=== PATIENT | male | born 1980 | race Caucasian/White ===

== ENCOUNTER 2016-05-29 21:55 | Emergency (ER) | payer MEDICAID, OTHER ==
[~2016-05-29] VITALS: Ht 175.3 cm; Wt 78.0 kg
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
[2016-05-29 23:07] LABS: AUTOMATED NEUTROPHIL # 11.2 TH/MM3 (1.8-7.7); BASOPHIL # 0.2 TH/MM3 (0-0.2); BASOPHIL % 1.2 % (0.0-2.0); EOSINOPHIL # 0.1 TH/MM3 (0-0.4); HEMATOCRIT 45.1 % (39.0-51.0); HEMO FLAGS DIFF FINAL; LYMPH % 15.4 % (9.0-44.0); LYMPHOCYTE # 2.2 TH/MM3 (1.0-4.8); MEAN CELL VOLUME 88.9 FL (80.0-100.0); MEAN CORPUSCULAR HEMOGLOBIN 30.6 PG (27.0-34.0); MEAN CORPUSCULAR HGB CONC 34.4 % (32.0-36.0); MONO % 5.3 % (0.0-8.0); NEUT % 77.1 % (16.0-70.0); PLATELET COUNT 235 TH/MM3 (150-450); RED BLOOD COUNT 5.08 MIL/MM3 (4.50-5.90); RED CELL DISTRIBUTION WIDTH 13.4 % (11.6-17.2); WHITE BLOOD COUNT 14.5 TH/MM3 (4.0-11.0)
[2016-05-29 23:19] LABS: ANION GAP 9 MEQ/L (5-15); BICARBONATE 24.3 MEQ/L (21.0-32.0); BLOOD UREA NITROGEN 13 MG/DL (7-18); CHLORIDE 107 MEQ/L (98-107); GLOMERULAR FILTRATION RATE 89 ML/MIN (>89); POTASSIUM 3.7 MEQ/L (3.5-5.1); SODIUM (NA) 140 MEQ/L (136-145)
[2016-05-30 00:31] VITALS: BP 138/88; PULSE 83; RESP 20; TEMP 97.7; O2SAT 100
[2016-05-30 00:46] VITALS: BP 138/88; PULSE 83; RESP 20; TEMP 97.7; O2SAT 100
[2016-05-30 04:45] VITALS: BP 130/78; PULSE 78; RESP 26; O2SAT 100
[2016-05-30 04:57] VITALS: BP 147/75; PULSE 84; RESP 18; TEMP 97.6; O2SAT 95
[2016-05-30 11:16] LABS: AMPHETAMINE, URINE NEG (NEG); BARBITURATES, URINE NEG (NEG); COCAINE, URINE POS (NEG)
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
[2016-05-30 12:08] VITALS: BP 147/75; PULSE 84; RESP 18; O2SAT 95
[2016-05-30] MEDS ORDERED: HALOPERIDOL DECANOATE 50 MG/ML VIAL IM ONE (21:15)
[2016-05-30] MEDS ORDERED: BENZTROPINE MESYLATE 1 MG TAB PO ONE (21:15)
== END 2016-05-30 16:02 | disposition home or self-care (01) ==
LOC: NEPA 21:55 → NEPJ 05-30 16:02
DX: F14.950 Cocaine use, unspecified with cocaine-induced psychotic disorder with delusions (principal)
CPT/HCPCS: 80048; 80307; 80320; 85025; 99283

== ENCOUNTER 2016-06-14 21:48 | Inpatient (IN) | payer MEDICAID, OTHER ==
[~2016-06-14] VITALS: Ht 175.3 cm; Wt 64.6 kg
[2016-06-14 21:50] VITALS: BP 145/85; PULSE 86; RESP 16; TEMP 97.6; O2SAT 100
[2016-06-14 22:54] VITALS: BP 139/90; PULSE 85; RESP 17; O2SAT 99
--- NOTE | 2016-06-14 23:01 | PD ---
HPI Chief Complaint: Psychiatric Symptoms Time Seen by Provider: 22:59 Travel History International Travel<30 days: No Contact w/Intl Traveler<30days: No Traveled to known affect area: No History of Present Illness HPI Patient comes emergency Department requesting psychiatric evaluation. He states he feels the people are following him and he is afraid if he does not get help he may hurt them. Patient states he is not wanting to hurt them and that is why he came in for help. Denies any homicidal or suicidal ideations. Denies any medical concerns this time. Denies any chest pain, shortness of breath, abdominal pain, fevers, or headaches. PFSH Past Medical History Anxiety: Yes Depression: Yes Diminished Hearing: No Social History Alcohol Use: Yes Tobacco Use: Yes Substance Use: Yes Allergies-Medications (Allergen,Severity, Reaction): Coded Allergies: No Known Allergies (Unverified , 06/14/16) Reported Meds & Prescriptions Reported Meds & Active Scripts Active No Active Prescriptions or Reported Medications Review of Systems Except as stated in HPI: all other systems reviewed are Neg Physical Exam Narrative GENERAL: Well-developed, well nourished, in no acute distress, and non-ill appearing. SKIN: Warm and dry. HEAD: Atraumatic. Normocephalic. EYES: Pupils equal and round. EOMI. No scleral icterus. No injection or drainage. ENT: No nasal bleeding or discharge. Mucous membranes pink and moist. NECK: Trachea midline. Supple. No nuclear rigidity. CARDIOVASCULAR: Regular rate and rhythm. No murmur appreciated. RESPIRATORY: No accessory muscle use. No respiratory distress. Clear to auscultation. Breath sounds equal bilaterally. MUSCULOSKELETAL: No obvious deformities. No clubbing. No cyanosis. No edema. Full range of motion. NEUROLOGICAL: Awake and alert. No obvious cranial nerve deficits. Motor grossly within normal limits. Normal speech. PSYCHIATRIC: Appropriate mood and affect. Data Data Last Documented VS Vital Signs Date Time Temp Pulse Resp B/P Pulse Ox O2 Delivery O2 Flow Rate FiO2 06/14/16 22:54 85 17 139/90 99 Room Air 06/14/16 21:50 97.6 Orders Complete Blood Count With Diff (06/14/16 22:40) Comprehensive Metabolic Panel (06/14/16 22:40) Psych Screen (06/14/16 22:40) Drug Screen, Random Urine (06/14/16 22:40) Alcohol (Ethanol) (06/14/16 22:40) Salicylates (Aspirin) (06/14/16 22:40) Tylenol (Acetaminophen) (06/14/16 22:40) Labs Laboratory Tests Test 06/14/16 06/14/16 22:35 22:45 Urine Opiates Screen NEG Urine Barbiturates Screen NEG Urine Amphetamines Screen NEG Urine Benzodiazepines Screen NEG Urine Cocaine Screen POS Urine Cannabinoids Screen NEG White Blood Count 11.1 TH/MM3 Red Blood Count 4.80 MIL/MM3 Hemoglobin 14.9 GM/DL Hematocrit 42.7 % Mean Corpuscular Volume 88.9 FL Mean Corpuscular Hemoglobin 31.0 PG Mean Corpuscular Hemoglobin 34.9 % Concent Red Cell Distribution Width 13.4 % Platelet Count 234 TH/MM3 Mean Platelet Volume 8.4 FL Neutrophils (%) (Auto) 74.2 % Lymphocytes (%) (Auto) 18.8 % Monocytes (%) (Auto) 5.2 % Eosinophils (%) (Auto) 1.2 % Basophils (%) (Auto) 0.6 % Neutrophils # (Auto) 8.2 TH/MM3 Lymphocytes # (Auto) 2.1 TH/MM3 Monocytes # (Auto) 0.6 TH/MM3 Eosinophils # (Auto) 0.1 TH/MM3 Basophils # (Auto) 0.1 TH/MM3 CBC Comment DIFF FINAL Differential Comment Sodium Level 140 MEQ/L Potassium Level 4.0 MEQ/L Chloride Level 104 MEQ/L Carbon Dioxide Level 27.5 MEQ/L Anion Gap 9 MEQ/L Blood Urea Nitrogen 12 MG/DL Creatinine 0.93 MG/DL Estimat Glomerular Filtration 92 ML/MIN Rate Random Glucose 90 MG/DL Calcium Level 8.7 MG/DL Total Bilirubin 0.2 MG/DL Aspartate Amino Transf 12 U/L (AST/SGOT) Alanine Aminotransferase 16 U/L (ALT/SGPT) Alkaline Phosphatase 110 U/L Total Protein 7.0 GM/DL Albumin 3.9 GM/DL Salicylates Level 2.4 MG/DL Acetaminophen Level LESS THAN 2.0 MCG/ML Ethyl Alcohol Level LESS THAN 3 MG/DL MDM Medical Decision Making Medical Screen Exam Complete: Yes Emergency Medical Condition: Yes Differential Diagnosis Alcohol intoxication , substance-induced psychotic disorder, delusional, paranoid, schizophrenia, other Narrative Course Patient was seen and examined. Labs were obtained and reviewed. Patient medically cleared for further treatment and evaluation by psych. Final disposition per psych. Diagnosis Primary Impression: Substance abuse Scripts No Active Prescriptions or Reported Meds Condition: Kwasi Wood Jun 14, 2016 23:01
[2016-06-14 23:11] LABS: AUTOMATED NEUTROPHIL # 8.2 TH/MM3 (1.8-7.7); BASOPHIL # 0.1 TH/MM3 (0-0.2); BASOPHIL % 0.6 % (0.0-2.0); EOSINOPHIL # 0.1 TH/MM3 (0-0.4); EOSINOPHIL % 1.2 % (0.0-4.0); HEMATOCRIT 42.7 % (39.0-51.0); HEMO FLAGS DIFF FINAL; LYMPH % 18.8 % (9.0-44.0); LYMPHOCYTE # 2.1 TH/MM3 (1.0-4.8); MEAN CELL VOLUME 88.9 FL (80.0-100.0); MEAN CORPUSCULAR HGB CONC 34.9 % (32.0-36.0); MONO % 5.2 % (0.0-8.0); NEUT % 74.2 % (16.0-70.0); PLATELET COUNT 234 TH/MM3 (150-450); RED CELL DISTRIBUTION WIDTH 13.4 % (11.6-17.2); WHITE BLOOD COUNT 11.1 TH/MM3 (4.0-11.0)
[2016-06-14 23:15] LABS: AMPHETAMINE, URINE NEG (NEG); BARBITURATES, URINE NEG (NEG); COCAINE, URINE POS (NEG)
[2016-06-14 23:24] LABS: ANION GAP 9 MEQ/L (5-15)
[2016-06-14 23:27] LABS: ALKALINE PHOSPHATASE 110 U/L (45-117); ALT (GPT) 16 U/L (12-78); AST (GOT) 12 U/L (15-37); BICARBONATE 27.5 MEQ/L (21.0-32.0); BLOOD UREA NITROGEN 12 MG/DL (7-18); CHLORIDE 104 MEQ/L (98-107); GLOMERULAR FILTRATION RATE 92 ML/MIN (>89); SODIUM (NA) 140 MEQ/L (136-145); TOTAL BILIRUBIN ADULT 0.2 MG/DL (0.2-1.0)
[2016-06-14 23:40] LABS: ACETAMINOPHEN LESS THAN 2.0 MCG/ML (10.0-30.0)
[2016-06-15 02:27] VITALS: BP 137/67; PULSE 81; RESP 19; O2SAT 99
[2016-06-15 06:25] VITALS: BP 127/70; PULSE 72; RESP 16; O2SAT 100
[2016-06-15] MEDS ORDERED: OLANZapine 5 MG TAB PO ONE (13:00)
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
[2016-06-15] MEDS: NICOTINE 21 MG/24 HR PATCH T-DERMAL SCH ×2 (17:00→18:41)
[2016-06-15] MEDS ORDERED: MAGNESIUM HYDROXIDE SUSP 30 ML CUP PO PRN (17:00)
[2016-06-15] MEDS ORDERED: ACETAMINOPHEN 325 MG TAB PO PRN (17:00)
[2016-06-15 18:10] VITALS: BP 132/81; PULSE 66; RESP 20; TEMP 97.9; O2SAT 100
[2016-06-15] MEDS: REMOVE OLD PATCH T-DERMAL SCH (18:41)
[2016-06-16 05:36] VITALS: BP 122/81; PULSE 66; RESP 18; TEMP 97.9; O2SAT 100
[2016-06-16] MEDS: NICOTINE 21 MG/24 HR PATCH T-DERMAL SCH (08:01)
[2016-06-16 08:47] LABS: ANION GAP 9 MEQ/L (5-15); BICARBONATE 28.4 MEQ/L (21.0-32.0); BLOOD UREA NITROGEN 16 MG/DL (7-18); CHLORIDE 104 MEQ/L (98-107); GLOMERULAR FILTRATION RATE 81 ML/MIN (>89); HDL CHOLESTEROL 51.7 MG/DL (40.0-60.0); LDL CHOLESTEROL 95 MG/DL (0-99); POTASSIUM 4.1 MEQ/L (3.5-5.1); SODIUM (NA) 141 MEQ/L (136-145)
--- NOTE | 2016-06-16 11:21 | HHI.HP ---
Provisional Diagnosis Admission Date Jun 15, 2016 at 17:01 [place] I. 1. 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 Cocaine abuse, rule-out dependence [place] II. Deferred [place] V. GAF is unclear at present Certification of Person's Competence To Provide Express and Informed Consent I have personally examined Matheus Cruz , a person being served at [facility] on, Jun 16, 2016 11:21. Express and informed consent means consent voluntarily given in writing, by a competent person, after sufficient explanation and disclosure of the subject matter involved to enable the person to make a knowing and willful decision without any element of force, fraud, deceit, duress, or other form of constraint or coercion. This person is 18 years of age or older, is not now known to be incompetent to consent to treatment with a guardian advocate, and does not have a health care surrogate or proxy currently making medical treatment decisions. I have found this person to be one of the following: [] Competent to provide express and informed consent, as defined above, for voluntary admission to this facility and is competent to provide express and informed consent for treatment. He/she has the consistent capacity to make well reasoned, willful, and knowing decisions concerning his or her medical or mental health treatment. The person fully and consistently understands the purpose of the admission for examination/placement and is fully capable of personally exercising all rights assured [place] [] Incompetent to provide express and informed consent to voluntary admission, and this is incompetent to provide express and informed consent to treatment. The person must be transferred to involuntary status and a petition for a guardian advocate filed with the Circuit Court. [x] Refusing to provide express and informed consent to voluntary admission but is competent to provide express and informed consent for treatment. The person must be discharged or transferred to involuntary status. Form shall be completed within 24 hours of a person's arrival at the receiving facility and filed in the clinical record of each person: 1. Admitted on a voluntary basis 2. Permitted to provide express and informed consent to his/her own treatment 3. Allowed to transfer from involuntary to voluntary status 4. Prior to permitting a person to consent to his or her own treatment after having been previously found incompetent to consent to treatment. History of Present Illness Capacity: Has Capacity HPI Mr. Cruz is a 35-year-old male with no reported previous psychiatric history who presented initially on a voluntary basis to the emergency department with paranoia. Patient was evaluated by the psychiatric nurse practitioner who placed the patient under the Aburto act. Reviewing the electronic medical record, I note that the patient presented under a Aburto act a little over 2 weeks ago for similar complaints. Patient's urine toxicology was positive for cocaine on both occasions. Patient seen and examined with counselor and nurse. Chart reviewed. Case discussed with nursing staff on the inpatient psychiatric unit. Per nursing staff, patient has been no behavioral problem on the inpatient unit. Patient presents initially as fairly calm and logical, although he does become a little bit irritable during extended interview and when his paranoia is gently challenged. He explains that he has a long history of institutionalization, having first been in the foster care system and subsequently in jail for 15 years related chiefly to drug charges. He says that he has been evaluated psychiatrically repeatedly during this time and no one has found any diagnosis other than perhaps posttraumatic stress disorder from childhood trauma. Patient reports that, starting around the time of his last ED presentation here , he has begun to feel like people are following him. He knows that people are following him because he sees a lot of [employer] plates and also [employer] specialty plates. He also says that some of these cars have stickers, such as the [employer] of police sticker. He admits that he has trafficked in cocaine his whole life and says that he possibly could be pursued by someone with whom he had had dealings previously but he really thinks that he is being pursued by the federal government. He says that he has confronted a couple of people that he thinks were following him but says that they just avoided him and walked away. He denies ever having lashed out physically at any one that was pursuing him by makes some allusion to the fact that he would defend himself if he felt threatened. He denies audiovisual hallucinations initially but then says that he thinks there may have been a listening device in an old apartment of his because he could hear an electrical sound. He says that he unscrewed a light bulb in the bathroom of this apartment and reportedly found a listening device behind the bulb. He denies any suicidal ideation. He denies any homicidal ideation but see above. He seems to approach the fact that he is being followed with sangfroid, "if it's the feds, I'm fucked anyway. If it's someone else, they'd have done something already." No issues with mood that I can discern. No reported PTSD symptoms. The remainder of the psychiatric ROS is negative. The patient is requesting discharge from the inpatient psychiatric unit today and is not interested in any psychiatric medication management. Past psychiatric history: Patient denies a history of psychiatric diagnosis besides possibly PTSD. He saw psychiatrists repeatedly in consultation both in childhood and while in jail for routine screenings. He says that he has been admitted psychiatrically in childhood but never in adulthood. He denies any history of suicide attempts. Family history: Patient is unsure as he was in foster care. Chemical dependency history: Patient admits to use of cocaine and occasional cannabis. He denies any use of synthetic drugs. He denies any IV drug use. He smokes about 3 packs of cigarettes a day. Social history: Patient reports that he has been staying in an [place] apartment. He got his GED. He was in a long-term relationship with a woman by the name of Mary Jo and the 2 have a 10-year-old son together. He denies any history. He endorses a history of legal charges as noted above. He denies any access to guns or firearms. With the patient's permission I have obtained collateral from Mary Jo at [phone]: Mary Jo does seem like a reliable source of collateral but I also note that she expresses a strong desire to have the patient home. She notes that she has known the patient for 16 years. She maintains that "he's fine" even though she does admit that within the last month or so he has been increasingly paranoid and feeling like someone is following him. She has no concerns that he has a risk of harm to himself or others and insists that he has never shown any aggressive tendencies. She would have no concerns of the patient were discharged from the hospital today but does request that we provide him with a referral for outpatient psychiatric follow-up. Review of Systems ROS Limitations: Psychotic Other No reported headache, vision or hearing changes, chest pain, shortness of breath , bowel or bladder issues. No other physical complaints. Past Psych History Psychological trauma history Patient alludes to a history of childhood trauma but declines to discuss it specifically. Violence risk - others (6 mos) Indeterminate. Patient denies any homicidal ideation per se but says that he would use physical force in order to defend himself. He does seem fairly paranoid at present, and I fear this confers some risk for violence although his long-term partner insists that she has never noted any violent tendencies and him, even during this period of paranoia. He denies a history of violent crime. Violence risk - self (6 mos) Indeterminate. Patient denies suicidal ideation and cites several reasons for wanting to live, but given that he feels that he is being pursued, my fear is that he would feel that he was backed into a corner and might self injure as a means of not giving his reported pursuers the satisfaction of getting to him. Substance Abuse History Drugs/Alcohol past 12 months See above Past Family Social History Coded Allergies: No Known Allergies (Unverified , 06/14/16) Past Medical History Patient denies any medical issues No Active Prescriptions or Reported Meds Current Medications Medications (Trade) Dose Ordered Sig/Rayne Route Start Time Stop Time Status Last Admin (Tylenol) 650 mg Q4H PRN PO 06/15/16 17:00 (Milk Of Magnesia Liq) 30 ml DAILY PRN PO 06/15/16 17:00 (Mag-Al Plus Susp Liq) 30 ml Q6H PRN PO 06/15/16 17:00 (Habitrol 21 Mg Patch.24 Hr) 1 patch DAILY T-DERMAL 06/15/16 17:00 06/16/16 08:01 Miscellaneous Information 1 HS T-DERMAL 06/15/16 21:00 06/15/16 18:41 Family History See above Social History See above Patient's Strengths (min. 2) Maintaining basic hygiene. Verbally fluent. Physical Exam Physical examination completed by ED provider. On my examination today, patient appears to be well-nourished and well-developed and in no acute physical distress. No abnormal motor movements noted. I do note that the patient has a light bulb tattoo over his left ear and a question georges tattoo over his right ear. Labs and vital signs reviewed: Vital Signs Vital Signs Date Time Temp Pulse Resp B/P Pulse Ox O2 Delivery O2 Flow Rate FiO2 06/16/16 05:36 97.9 66 18 122/81 100 06/15/16 06:25 Room Air Lab Results Item Value Date Time White Blood Count 11.1 TH/MM3 H 06/14/162244 Hemoglobin 14.9 GM/DL 06/14/162244 Platelet Count 234 TH/MM3 06/14/162244 Sodium Level 141 MEQ/L 06/16/16 0748 Potassium Level 4.1 MEQ/L 06/16/1648 Chloride Level 104 MEQ/L 06/16/16 0748 Carbon Dioxide Level 28.4 MEQ/L 06/16/16 0748 Blood Urea Nitrogen 16 MG/DL 06/16/16 0748 Creatinine 1.04 MG/DL 06/16/16747 Aspartate Amino Transf (AST/SGOT) 12 U/L L 06/14/162244 Alanine Aminotransferase (ALT/SGPT) 16 U/L 06/14/162244 Alkaline Phosphatase 110 U/L 06/14/162244 Urine Cocaine Screen POS H 06/14/162234 Ethyl Alcohol Level LESS THAN 3 MG/DL 06/14/162244 Mental Status Examination Patient is in hospital gown. He is well groomed. He is awake and alert and oriented 3. No abnormal motor movements noted. Steady gait and station. Speech is within normal limits for rate, tone and volume. Language and fund of knowledge seemed average. Mood is fair and affect is blunted. Thought process linear. No loosening of associations. Paranoia of being pursued is present but no other evidence delusional material. Denies current audiovisual hallucinations but see above. Denies suicidal or homicidal ideation but it is not clear to me that he is reliable to contract for safety in his present state. Insight and judgment are unclear. Assessment & Plan Problem List: (1) Brief psychotic disorder ICD Code: F23 (2) Cocaine abuse ICD Code: F14.10 Assessment & Plan This is a 35-year-old male with past psychiatric history as detailed above who is presently admitted to the inpatient psychiatric unit under a Aburto act. Patient has ongoing paranoia that he is being pursued. I do suspect that this material is delusional in nature, even though he does have a reported history of drug dealings that might lead to him being the target of pursuit, because these feelings of being pursued are incorrigible and have their basis in irrational evidence, such as license plates. Given his ongoing cocaine use, my suspicion is that these delusions are largely substance induced, by a later life onset of a primary psychotic disorder also needs to remain in the differential along with psychosis potentially due to a general medical condition. Patient is denying suicidal or homicidal ideation, and his long- term partner vouches for his safety, but I am concerned by the flash of irritability he displayed when his delusional material was challenged even slightly. In fairness though, his history of lengthy institutionalization could also have lead to this exaggerated response to being challenged. Even given the reassuring collateral and the lack of any sort of behavioral disturbance on the unit, I think it is most prudent to observe the patient on the inpatient psychiatric unit. Admitted inpatient. Patient is declining to sign in voluntarily. I will continue to observe under the Aburto act. Patient may consent for medications but has said that he has no interest in taking any psychotropics. I think it is prudent to evaluate for possible medical causes, and I will check an MRI of the brain along with first break psychosis laboratories. I will hold off on ordering an antipsychotic at this time as the patient is declining medication management. I will provide the patient with some Ativan as needed for anxiety if he is willing to consent for this. Vitals every shift. Counselor to see. Disposition planning. Estimated length of stay: 2-3 days under the Aburto act, perhaps longer pending outcome of observation. Discharge Planning Pending outcome of observation Request HC Surrog/Guard Advoc?: No (not at this time) Keegan Mendez MD Jun 16, 2016 11:21
[2016-06-16] MEDS ORDERED: LORazepam 2 MG/ML VIAL IM PRN (12:00)
[2016-06-16 12:21] LABS: HEMOGLOBIN A1a 0.7 %; HEMOGLOBIN A1b 1.6 %; HEMOGLOBIN Ao 85.6 %; HEMOGLOBIN P3 3.6 %
[2016-06-16] MEDS: REMOVE OLD PATCH T-DERMAL SCH (20:02)
[2016-06-17] MEDS: NICOTINE 21 MG/24 HR PATCH T-DERMAL SCH (07:30)
[2016-06-17] MEDS ORDERED: ZIPRASIDONE MESYLATE 20 MG VIAL IM ONE (08:43)
[2016-06-17] MEDS ORDERED: diphenhydrAMINE HCL 50 MG/ML VIAL IM STA (08:43)
[2016-06-17] MEDS ORDERED: ZIPRASIDONE MESYLATE 20 MG VIAL IM STA (08:43)
[2016-06-17] MEDS ORDERED: diphenhydrAMINE HCL 50 MG/ML VIAL ONE (08:46)
--- NOTE | 2016-06-17 09:05 | HHI.PYPN ---
Subjective Remarks Patient seen and examined. Chart reviewed. Case discussed with nursing staff who reports patient has been agitated and verbally threatening, banging on the nursing station window and cursing. On my examination today, patient is agitated, paranoid, oppositional. He believes that we have purposefully messed up his breakfast order, but nursing staff tells me that patient refused to let them try to make it right this morning. He remains discharge focused and threatens, "keep playing with me and you'll see what fucking happens." Later, when I am interviewing a different patient, he charges into the room and demands to know if he is being kept. I answer him in the affirmative and try to explain why. He is quite threatening and cannot be verbally de-escalated. It is my judgement that physical aggression is imminent. I have ordered him medicated with Geodon, Ativan and Benadryl ETO. Patient's long-term partner Mary Jo calls onto the unit. She is accusatory and somewhat irrational. She accuses us of treating him differently because of his insurance. I note that she uses much of the same language that the patient himself used to verbalize his complaints, and I do consequently wonder if she was coached by patient. I try to explain the concerns of the treatment team regarding patient's behavior under observation, but I fear she does not appreciate the gravity of the situation. Review of Systems ROS Limitations: Uncooperative, Psychotic, Poor Historian Other No physical complaints. Objective Alert: Yes [place]: Person, Place (at least) Mood: Agitated, Angry, Oppositional Affect: Labile Memory Intact: Comment (Not formally assessed) Hallucinations: Other (No AVH) Delusions: Yes Delusion Type: Paranoid Suicidal: Ideation (No SI voiced) Homicidal: Ideation (Quite threatening and unable to contract for safety in present state.) Insight/Judgement Poor Remarks No abnormal motor movements noted. TP perseverative on discharge. Speech loud , angry. Grooming and hygiene fair. Labs Patient has been refusing labs and studies. I have emphasized the importance of working up his paranoia medically, but he refuses to listen. Vitals/IOs Vital Signs Date Time Temp Pulse Resp B/P Pulse Ox O2 Delivery O2 Flow Rate FiO2 06/16/16 05:36 97.9 66 18 122/81 100 06/15/16 06:25 Room Air Assessment & Plan Problem List: (1) Brief psychotic disorder ICD Code: F23 (2) Cocaine abuse ICD Code: F14.10 Assessment & Plan Patient's paranoia, agitation and aggressiveness under observation make discharge before expiration of Aburto Act impossible. I have initiated petition for involuntary psychiatric hospitalization and consulted for a second opinion. I have requested HCS/GA. I fear that with his current level of irritability and aggressiveness the patient represents a significant risk of harm to self/ others. I will initiate Justin PO with IM backup to try to manage patient's psychosis. Mouth checks. I will add Arlin PAEZ EPS. I have encouraged him to allow us to medically work him up, but he has refused. Hopefully we will be more successful when he is calmer later. Violent/assaultive precautions. Continue to monitor on the inpatient unit. Continue other medications and care as ordered. Justification for Cont. Inpt. Impairments in safety. Impairments in reality construction. Impairments in social functioning. Medication changes in process. Discharge Planning Pending psychiatric stabilization. Request HC Surrog/Guard Advoc?: Yes Keegan Mendez MD Jun 17, 2016 09:05
[2016-06-17] MEDS ORDERED: ZIPRASIDONE MESYLATE 20 MG VIAL IM PRN (12:00)
[2016-06-17] MEDS ORDERED: BENZTROPINE MESYLATE 1 MG TAB PO PRN (12:00)
[2016-06-17] MEDS ORDERED: BENZTROPINE MESYLATE 2 MG/2 ML VIAL IM PRN (12:00)
--- NOTE | 2016-06-17 13:21 | PD.CONS ---
Provisional Diagnosis Admission Date Jun 15, 2016 at 17:01 [place] I. 1. 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 Cocaine abuse, rule-out dependence [place] II. Deferred [place] V. GAF is unclear at present History of Present Illness Service Psychiatry Consult Requested By Primary Care Physician No Primary Care Physician HPI Mr. Cruz is a 35-year-old male with no reported previous psychiatric history who presented initially on a voluntary basis to the emergency department with paranoia. Patient was evaluated by the psychiatric nurse practitioner who placed the patient under the Aburto act. Reviewing the electronic medical record, I note that the patient presented under a Aburto act a little over 2 weeks ago for similar complaints. Patient's urine toxicology was positive for cocaine on both occasions. Patient seen and examined with counselor and nurse. Chart reviewed. Case discussed with nursing staff on the inpatient psychiatric unit. Per nursing staff, patient has been no behavioral problem on the inpatient unit. Patient presents initially as fairly calm and logical, although he does become a little bit irritable during extended interview and when his paranoia is gently challenged. He explains that he has a long history of institutionalization, having first been in the foster care system and subsequently in longterm for 15 years related chiefly to drug charges. He says that he has been evaluated psychiatrically repeatedly during this time and no one has found any diagnosis other than perhaps posttraumatic stress disorder from childhood trauma. Patient reports that, starting around the time of his last ED presentation here , he has begun to feel like people are following him. He knows that people are following him because he sees a lot of [employer] plates and also [facility] specialty plates. He also says that some of these cars have stickers, such as the [employer] of police sticker. He admits that he has trafficked in cocaine his whole life and says that he possibly could be pursued by someone with whom he had had dealings previously but he really thinks that he is being pursued by the federal government. He says that he has confronted a couple of people that he thinks were following him but says that they just avoided him and walked away. He denies ever having lashed out physically at any one that was pursuing him by makes some allusion to the fact that he would defend himself if he felt threatened. He denies audiovisual hallucinations initially but then says that he thinks there may have been a listening device in an old apartment of his because he could hear an electrical sound. He says that he unscrewed a light bulb in the bathroom of this apartment and reportedly found a listening device behind the bulb. He denies any suicidal ideation. He denies any homicidal ideation but see above. He seems to approach the fact that he is being followed with sangfroid, "if it's the feds, I'm fucked anyway. If it's someone else, they'd have done something already." No issues with mood that I can discern. No reported PTSD symptoms. The remainder of the psychiatric ROS is negative. The patient is requesting discharge from the inpatient psychiatric unit today and is not interested in any psychiatric medication management. Past psychiatric history: Patient denies a history of psychiatric diagnosis besides possibly PTSD. He saw psychiatrists repeatedly in consultation both in childhood and while in longterm for routine screenings. He says that he has been admitted psychiatrically in childhood but never in adulthood. He denies any history of suicide attempts. Family history: Patient is unsure as he was in foster care. Chemical dependency history: Patient admits to use of cocaine and occasional cannabis. He denies any use of synthetic drugs. He denies any IV drug use. He smokes about 3 packs of cigarettes a day. Social history: Patient reports that he has been staying in an efficiency apartment. He got his GED. He was in a long-term relationship with a woman by the name of Mary Jo and the 2 have a 10-year-old son together. He denies any history. He endorses a history of legal charges as noted above. He denies any access to guns or firearms. With the patient's permission I have obtained collateral from Mary Jo at [phone]: Mary Jo does seem like a reliable source of collateral but I also note that she expresses a strong desire to have the patient home. She notes that she has known the patient for 16 years. She maintains that "he's fine" even though she does admit that within the last month or so he has been increasingly paranoid and feeling like someone is following him. She has no concerns that he has a risk of harm to himself or others and insists that he has never shown any aggressive tendencies. She would have no concerns of the patient were discharged from the hospital today but does request that we provide him with a referral for outpatient psychiatric follow-up. 06/17/16 Above note dictated by Dr. Mendez reviewed and agreed with. Patient is a 35- year-old white male admitted to Dr. Mendez service under the Aburto act. Patient seen by me this morning was angry hostile profane threatening toward staff necessitating an "all male staff" call, escorting him to the quiet room where received an ETO. Dr. mendez signed first opinion petition supporting Aburto act. I agree. Patient meets criteria for involuntary psychiatric hospitalization under the Aburto act. Thus I will cosign second opinion petition supporting Aburto act Past Family Social History Coded Allergies: No Known Allergies (Unverified , 06/14/16) No Active Prescriptions or Reported Meds Current Medications Medications (Trade) Dose Ordered Sig/Rayne Route Start Time Stop Time Status Last Admin (Tylenol) 650 mg Q4H PRN PO 06/15/16 17:00 (Milk Of Magnesia Liq) 30 ml DAILY PRN PO 06/15/16 17:00 (Mag-Al Plus Susp Liq) 30 ml Q6H PRN PO 06/15/16 17:00 (Habitrol 21 Mg Patch.24 Hr) 1 patch DAILY T-DERMAL 06/15/16 17:00 06/17/16 07:30 Miscellaneous Information 1 HS T-DERMAL 06/15/16 21:00 06/15/16 18:41 (Ativan) 1 mg Q6H PRN PO 06/16/16 12:00 (Ativan Inj) 1 mg Q6H PRN IM 06/16/16 12:00 06/17/16 09:47 (Geodon Inj) 20 mg BIDPC PRN IM 06/17/16 12:00 (Cogentin) 1 mg Q12HR PRN PO 06/17/16 12:00 (Cogentin Inj) 1 mg Q12HR PRN IM 06/17/16 12:00 (Geodon) 60 mg BIDPC PO 06/18/16 18:00 06/19/16 17:59 (Geodon) 80 mg BIDPC PO 06/19/16 18:00 06/29/16 17:59 (Geodon) 40 mg BIDPC PO 06/17/16 18:00 06/18/16 17:59 Patient's Strengths (min. 2) Maintaining basic hygiene. Verbally fluent. Physical Exam Vital Signs Vital Signs Date Time Temp Pulse Resp B/P Pulse Ox O2 Delivery O2 Flow Rate FiO2 06/16/16 05:36 97.9 66 18 122/81 100 06/15/16 06:25 Room Air Mental Status Examination Speech: Rapid Orientation: x3 Memory: Unremarkable Thought Process: Linear Thought Content: Paranoid Hallucination Type: None Attention and Concentration: Other (poor) Suicidal Ideation: No Previous Suicide Attempts: No Homicidal Ideation: No Previous Homicide Attempts: No (denies) Insight: Poor Judgement: Poor Affect: Other (increased range and intensity) Mood: Angry, Irritable Motor Activity: Normal gait Assessment & Plan Problem List: (1) Brief psychotic disorder ICD Code: F23 (2) Cocaine abuse ICD Code: F14.10 Assessment & Plan Estimated LOS: days Request HC Surrog/Guard Advoc?: Yes Manuel Wallace MD Jun 17, 2016 13:21
[2016-06-17 15:30] VITALS: BP 125/61; PULSE 91; RESP 17; TEMP 98.3; O2SAT 98
[2016-06-17] MEDS: ZIPRASIDONE HCL 40 MG CAP PO SCH (17:20)
[2016-06-17] MEDS: REMOVE OLD PATCH T-DERMAL SCH (17:37)
[2016-06-17] MEDS ORDERED: ZIPRASIDONE HCL 40 MG CAP PO SCH (18:00)
[2016-06-17] MEDS: LORazepam 1 MG TAB PO PRN (21:31)
[2016-06-18 05:36] VITALS: BP 124/71; PULSE 63; RESP 18; TEMP 98; O2SAT 97
[2016-06-18] MEDS: NICOTINE 21 MG/24 HR PATCH T-DERMAL SCH (08:59)
[2016-06-18] MEDS: ZIPRASIDONE HCL 40 MG CAP PO SCH (08:59)
[2016-06-18] MEDS: LORazepam 1 MG TAB PO PRN (13:42)
--- NOTE | 2016-06-18 16:49 | HHI.PYPN ---
Subjective Remarks Pt seen and discussed with staff. He received an ETO yesterday after he became aggressive and threatening toward staff. Today he has been calm and has not been agitated. He reports that mood is better and he is less irritable and "no longer irrational I guess". He is compliant with medications and denies side effects. Staff report decreased paranoia today. Objective Alert: Yes [place]: Person, Place, Date, Situation Mood: Calm Affect: Restricted Memory Intact: Comment (intacdt) Hallucinations: Other (none) Delusions: Yes Delusion Type: Paranoid (mild) Suicidal: Ideation (denies) Homicidal: Ideation (denies) Insight/Judgement poor Vitals/IOs Vital Signs Date Time Temp Pulse Resp B/P Pulse Ox O2 Delivery O2 Flow Rate FiO2 06/18/16 05:36 98.0 63 18 124/71 97 06/15/16 06:25 Room Air Assessment & Plan Problem List: (1) Brief psychotic disorder ICD Code: F23 (2) Cocaine abuse ICD Code: F14.10 Assessment & Plan Pt improving. Continue current tx plan. Estimated LOS: days Justification for Cont. Inpt. monitoring for safety Request HC Surrog/Guard Advoc?: Yes Dacia Live MD Jun 18, 2016 16:49
[2016-06-18 17:30] VITALS: BP 144/79; PULSE 87; RESP 18; TEMP 98
--- NOTE | 2016-06-18 17:53 | RADRPT ---
EXAM DATE/TIME: 06/18/2016 17:03 [place] COMPARISON: No previous studies available for comparison. INDICATIONS : Psychosis. MEDICAL HISTORY : None. SURGICAL HISTORY : None. ENCOUNTER: Initial ACUITY: 3 day PAIN SCORE: 0/10 LOCATION: cranial TECHNIQUE: Multiplanar, multisequence MRI of the brain was performed without contrast. FINDINGS: CEREBRUM: The ventricles are normal for age. No evidence of midline shift, mass lesion, hemorrhage or acute in farction. No extraaxial fluid collections are seen. The pituitary gland and suprasellar cistern are normal in configuration. WHITE MATTER: No significant signal abnormalities are seen in the white matter. POSTERIOR FOSSA: The cerebellum and brainstem are intact. The 4th ventricle is midline. The cerebellopontine angle is unremarkable. The cerebellar tonsils are normal in position. DIFFUSION IMAGING: No focal areas of restricted diffusion are seen. No evidence of acute infarction. EXTRACRANIAL: The visualized portions of the orbits and paranasal sinuses are unremarkable. CONCLUSION: Unremarkable MRI of the brain. Jose Francisco Rodriguez MD on June 18, 2016 at 17:50 Board Certified Radiologist. This report was verified electronically.
[2016-06-18] MEDS: ZIPRASIDONE HCL 60 MG CAP PO SCH (18:40)
[2016-06-18] MEDS: REMOVE OLD PATCH T-DERMAL SCH (21:00)
[2016-06-19 05:41] VITALS: BP 150/75; PULSE 95; RESP 16; TEMP 98.7
[2016-06-19] MEDS: NICOTINE 21 MG/24 HR PATCH T-DERMAL SCH (09:00)
[2016-06-19] MEDS: ZIPRASIDONE HCL 60 MG CAP PO SCH (09:29)
--- NOTE | 2016-06-19 13:35 | HHI.PYPN ---
Subjective Remarks Pt seen and discussed with staff. He is compliant with medication and states, "it seems to be clearing my thoughts up." He denies medication side effects. He denies paranoid ideations to author, but did discuss at length with RN that he had been having increasing paranoid ideations that federal agents were after him prior to admission. RN reports that pt expressed insight into how these ideations were illogical. No agitation or aggression. T staff report that pt made threats to start a fight if not discharged tomorrow. Objective Alert: Yes [place]: Person, Place, Date, Situation Mood: Calm Affect: Restricted Memory Intact: Comment (intact) Hallucinations: Other (none) Delusions: Yes Delusion Type: Paranoid (decreasing) Suicidal: Ideation (denies) Homicidal: Ideation (denies) Insight/Judgement poor Vitals/IOs Vital Signs Date Time Temp Pulse Resp B/P Pulse Ox O2 Delivery O2 Flow Rate FiO2 06/19/16 05:41 98.7 95 16 150/75 06/18/16 05:36 97 Assessment & Plan Problem List: (1) Brief psychotic disorder ICD Code: F23 (2) Cocaine abuse ICD Code: F14.10 Assessment & Plan Continue current tx plan as pt is improving. Estimated LOS: days Justification for Cont. Inpt. impairmetns in safety Request HC Surrog/Guard Advoc?: Yes Dacia Live MD Jun 19, 2016 13:35
[2016-06-19 17:15] VITALS: BP 150/69; PULSE 79; RESP 16; TEMP 98.1; O2SAT 98
[2016-06-19] MEDS: ZIPRASIDONE HCL 80 MG CAP PO SCH (18:26)
[2016-06-19] MEDS: REMOVE OLD PATCH T-DERMAL SCH (20:47)
[2016-06-19] MEDS: LORazepam 1 MG TAB PO PRN (20:50)
[2016-06-19] MEDS: ALUMINUM/MAGNESIUM/SIMETH 30 ML CUP PO PRN (20:52)
[2016-06-20 05:58] VITALS: BP 134/80; PULSE 85; RESP 18; TEMP 97.8; O2SAT 95
[2016-06-20] MEDS: NICOTINE 21 MG/24 HR PATCH T-DERMAL SCH (09:00)
[2016-06-20] MEDS: ZIPRASIDONE HCL 80 MG CAP PO SCH (09:09)
[2016-06-20] MEDS ORDERED: GEOD80CA PO (12:29)
--- NOTE | 2016-06-20 12:30 | HHI.DS ---
Psychiatry Discharge Summary Inpatient Psychiatric care?: Yes Advance Directive: No Reason Not Provided: Due to Patient Condition Mental Health AdvanceDirective: No Health Care Proxy: No Admission Admission Date Jun 15, 2016 at 17:01 Admission Diagnosis: (1) Brief psychotic disorder ICD Code: F23 (2) Cocaine abuse ICD Code: F14.10 Brief History Mr. Cruz is a 35-year-old male with no reported previous psychiatric history who presented initially on a voluntary basis to the emergency department with paranoia. Patient was evaluated by the psychiatric nurse practitioner who placed the patient under the Aburto act. Reviewing the electronic medical record, I note that the patient presented under a Aburto act a little over 2 weeks ago for similar complaints. Patient's urine toxicology was positive for cocaine on both occasions. Patient seen and examined with counselor and nurse. Chart reviewed. Case discussed with nursing staff on the inpatient psychiatric unit. Per nursing staff, patient has been no behavioral problem on the inpatient unit. Patient presents initially as fairly calm and logical, although he does become a little bit irritable during extended interview and when his paranoia is gently challenged. He explains that he has a long history of institutionalization, having first been in the foster care system and subsequently in [facility] for 15 years related chiefly to drug charges. He says that he has been evaluated psychiatrically repeatedly during this time and no one has found any diagnosis other than perhaps posttraumatic stress disorder from childhood trauma. Patient reports that, starting around the time of his last ED presentation here , he has begun to feel like people are following him. He knows that people are following him because he sees a lot of [employer] plates and also [facility] specialty plates. He also says that some of these cars have stickers, such as the [employer] of police sticker. He admits that he has trafficked in cocaine his whole life and says that he possibly could be pursued by someone with whom he had had dealings previously but he really thinks that he is being pursued by the federal government. He says that he has confronted a couple of people that he thinks were following him but says that they just avoided him and walked away. He denies ever having lashed out physically at any one that was pursuing him by makes some allusion to the fact that he would defend himself if he felt threatened. He denies audiovisual hallucinations initially but then says that he thinks there may have been a listening device in an old apartment of his because he could hear an electrical sound. He says that he unscrewed a light bulb in the bathroom of this apartment and reportedly found a listening device behind the bulb. He denies any suicidal ideation. He denies any homicidal ideation but see above. He seems to approach the fact that he is being followed with sangfroid, "if it's the feds, I'm fucked anyway. If it's someone else, they'd have done something already." No issues with mood that I can discern. No reported PTSD symptoms. The remainder of the psychiatric ROS is negative. The patient is requesting discharge from the inpatient psychiatric unit today and is not interested in any psychiatric medication management. Past psychiatric history: Patient denies a history of psychiatric diagnosis besides possibly PTSD. He saw psychiatrists repeatedly in consultation both in childhood and while in [facility] for routine screenings. He says that he has been admitted psychiatrically in childhood but never in adulthood. He denies any history of suicide attempts. Family history: Patient is unsure as he was in foster care. Chemical dependency history: Patient admits to use of cocaine and occasional cannabis. He denies any use of synthetic drugs. He denies any IV drug use. He smokes about 3 packs of cigarettes a day. Social history: Patient reports that he has been staying in an efficiency apartment. He got his GED. He was in a long-term relationship with a woman by the name of Mary Jo and the 2 have a 10-year-old son together. He denies any history. He endorses a history of legal charges as noted above. He denies any access to guns or firearms. With the patient's permission I have obtained collateral from Mary Jo at [phone]: Mary Jo does seem like a reliable source of collateral but I also note that she expresses a strong desire to have the patient home. She notes that she has known the patient for 16 years. She maintains that "he's fine" even though she does admit that within the last month or so he has been increasingly paranoid and feeling like someone is following him. She has no concerns that he has a risk of harm to himself or others and insists that he has never shown any aggressive tendencies. She would have no concerns of the patient were discharged from the hospital today but does request that we provide him with a referral for outpatient psychiatric follow-up. Tobacco Use In Past 30 Days: 5 or More Cigarettes/Day Alcohol Use: 2-4 Times Per Month Hospital Course Patient was admitted to a locked, inpatient psychiatric unit. Appropriate precautions were in place throughout patient's hospital stay. Patient was seen and examined daily on the unit by psychiatry and also visited by counselor. Medications were adjusted. Patient tolerated medications well without side effects. Patient had improvement in his presenting psychiatric symptomatology. Patient's behavior improved with the benefit of psychopharmacologic treatment. There was no evidence of any suicidality or homicidality on the inpatient unit. On the day of discharge: Patient seen and examined. Chart reviewed. Case discussed with nurse, counselor and occupational therapist in treatment team. Per nursing staff, patient has been no behavioral problem. I do see it noted that [employer] shared with Dr. Live that the patient threatened to start a fight if not discharged today, but I suspect this represents posturing related to his history in the legal system. He is calm and pleasant, even jocular, at the time of my evaluation. He is requesting discharge from the inpatient psychiatric unit. He does express gratitude in his way for having been retained and started on medication. "I still think you' re an asshole, doc, but you're a smart asshole." He feels significantly less paranoid on the Geodon, and feels that this medication has also lessened his racing thoughts. He denies any suicidal or homicidal thoughts. He denies any audiovisual hallucinations. I can elicit no ongoing delusional material. Mood is stable and there are no depressive or hypomanic/manic symptoms. He is agreeable of a referral to 12 step programming to assist with abstinence from substances. He is agreeable to following up with psychiatry on an outpatient basis. He denies side effects from medications. He has no physical complaints. He is attending to his basic needs. Weighing the acute, chronic, and protective factors and based on the available evidence, I rolling machine operator to a reasonable degree of medical certainty that the patient is at low imminent risk of harm to self or others from a mental illness as defined under the Aburto act and his level of function is adequate for outpatient care. Consequently, the patient no longer meets criteria for involuntary psychiatric hospitalization. I have recommended that he remain voluntarily both for additional observation and to allow for us to pursue the laboratory work for first break psychosis, which he had initially refused. However, the patient continues to insist on discharge today. Given that I have no basis to retain him involuntarily at this time and given that he is requesting discharge from the inpatient unit, I will arrange for his discharge today with psychiatric follow-up as arranged by counselor. Patient is also to follow-up with primary care. I have counseled the patient regarding warning signs for need to return to the psychiatric emergency room is part of the general safety plan. Results Blood Pressure 134 / 80 Vital Signs Date Time Temp Pulse Resp B/P Pulse Ox O2 Delivery O2 Flow Rate FiO2 06/20/16 05:58 97.8 85 18 134/80 95 Laboratory Results Test 06/16/16 07:48 Hemoglobin A1c 5.4 % (4.3-6.0) Triglycerides Level 112 MG/DL (42-150) Cholesterol Level 169 MG/DL (120-200) LDL Cholesterol 95 MG/DL (0-99) HDL Cholesterol 51.7 MG/DL (40.0-60.0) Summary of Procedures None done Imaging Last Impressions Brain MRI 06/18/16 0000 Signed Impressions: Service Date/Time: Saturday, June 18, 2016 17:03 - CONCLUSION: Unremarkable MRI of the brain. Jose Francisco Rodriguez MD Pending results at discharge: No Medications # of Antipsychotic meds at D/C: 1 Approp Antipsych med options 1 - Minimum of three failed multiple trials of monotherapy. 2 - Documented plan to taper to monotherapy due to previous use of multiple meds OR cross-taper in progress at D/C. 3 - Documentation of augmentation of Clozapine. 4 - Justification other than those listed in allowable values 1-3, document here : Discharge Discharge Date: Jun 20, 2016 Discharge Diagnosis: (1) Brief psychotic disorder Diagnosis: Principal (stabilized) ICD Code: F23 (2) Cocaine abuse Diagnosis: Secondary (counseled to quit) ICD Code: F14.10 GAF on discharge is 55. Mental Status Exam at Disch Patient is casually dressed. He is well groomed. He is awake and alert and oriented 3. No evidence of delirium. No abnormal motor movements noted. No signs withdrawal noted. Speech is within normal limits for rate, tone and volume. Language and fund of knowledge seem average. Mood is fair and affect is full and reactive. Thought process linear. No loosening of associations. No evident delusions. Denies audiovisual hallucinations. Denies suicidal or homicidal ideation. Insight and judgment are fair. Pt Condition on Discharge: Stable Discharge Disposition: Discharge Home Discharge Instructions Diet Instructions: As Tolerated, No Restrictions Activities you can perform: Weight Bearing as [place] Scheduled Appointment: Giovany Ralph Act Appointment Date: Jun 24, 2016 Appointment Time: 7:30am New Medications: Ziprasidone (Geodon) 80 Mg Cap 80 MG PO BIDPC Mental Health Days 15 Ref 1 CAP Discharge Time <= 30 minutes Discharge/Advance Care Plan Health Problems: (1) Brief psychotic disorder (2) Cocaine abuse Goals to promote your health * To prevent worsening of your condition and complications * To maintain your health at the optimal level Directions to meet your goals Take your medications as prescribed Follow your dietary instruction Follow activity as directed Keep your appointments as scheduled Take your immunizations and boosters as scheduled If your symptoms worsen call your PCP, if no PCP go to Urgent Care Center or Emergency Room For 24/10 questions related to your inpatient stay or results of tests pending at discharge, please contact Dr. Keegan Mendez at Smoking is Dangerous to Your Health. Avoid second hand smoking Keegan Mendez MD Jun 20, 2016 12:29
[2016-06-20] MEDS: ALUMINUM/MAGNESIUM/SIMETH 30 ML CUP PO PRN (13:03)
== END 2016-06-20 14:31 | disposition home or self-care (01) | DRG 885 ==
LOC: NEPJ 21:48 → NEDA 06-15 17:01 → H270 06-15 17:30
PROVIDERS: ADMIT Psychiatry & Neurology Psychiatry; ATTEND Psychiatry & Neurology Psychiatry
DX: F23 Brief psychotic disorder (principal); F14.10 Cocaine abuse, uncomplicated; F17.210 Nicotine dependence, cigarettes, uncomplicated
CPT/HCPCS: 70551; 80048; 80053; 80061; 80307; 83036; 85025; 99285; J1200; J2060; J3486